=== PATIENT | female | born 1940 | race Caucasian/White ===

== ENCOUNTER 2020-06-21 10:44 | Inpatient (IN) | payer MEDICARE ==
[~2020-06-21] VITALS: Ht 167.6 cm; Wt 78.2 kg
[2020-06-21 10:46] VITALS: BP 137/71
[2020-06-21 11:17] LABS: BASO % 0.6 % (0.0-1.0); EOS % 0.1 % (1.0-4.0); HEMATOCRIT 32.6 % (37.0-47.0); LYMPH # 0.9 10*3/uL (1.3-4.4); LYMPH % 12.4 % (27.0-41.0); MEAN CELL VOLUME 95.9 fl (81.0-99.0); MEAN CORPUSCULAR HGB 30.3 pg (27.0-31.0); MEAN CORPUSCULAR HGB CONC 31.6 g/dl (33.0-37.0); MONO # 0.8 10*3/uL (0.1-1.0); MONO % 11.3 % (3.0-9.0); NEUT # 5.4 10*3/uL (2.3-7.9); NEUT % 75.5 % (47.0-73.0); PLATELET COUNT AUTOMATED 239 10*3/uL (130-400); RED CELL DISTRI WIDTH 13.3 % (0-14.5); WHITE BLOOD COUNT 7.1 10*3/uL (4.8-10.8)
[2020-06-21 11:29] LABS: ACT PARTIAL THROMBO TIME 28.2 SECONDS (20.0-32.1)
[2020-06-21 11:33] LABS: ALBUMIN 3.5 gm/dl (3.1-4.5); ALKALINE PHOSPHATASE 94 U/L (45-117); BUN 22 mg/dl (7-24); CHLORIDE 107 mmol/L (98-107); CKMB 1.4 ng/ml (0.5-3.6); CPK 139 U/L (26-192); LIPASE 67 U/L (73-393); POTASSIUM 3.9 mmol/L (3.5-5.1); SGOT/AST 15 IU/L (3-35); SGPT/ALT 20 U/L (12-78); SODIUM 139 mmol/L (136-145); TOTAL PROTEIN 7.8 gm/dL (6.4-8.2)
[2020-06-21 11:37] LABS: TROPONIN I < 0.015 ng/ml (<0.045)
[2020-06-21 12:59] LABS: BILIRUBIN NEGATIVE; BLOOD 1+ (NEGATIVE); CLARITY CLOUDY (CLEAR); COLOR YELLOW (YELLOW); GLUCOSE NEGATIVE; KETONE TRACE; LEUKO ESTERASE 3+ (NEGATIVE); NITRITE NEGATIVE (NEGATIVE)
[2020-06-21 13:13] LABS: RBC 16-20 rbc/hpf (0-2); WBC 31-40 wbc/hpf (0-5)
[2020-06-21 13:14] LABS: BACTERIA 2+; EPITHELIAL CELLS 16-20
[2020-06-21 13:30] VITALS: BP 130/80
[2020-06-21 15:00] VITALS: BP 138/74
[2020-06-21 16:00] VITALS: BP 138/74
[2020-06-21 20:00] VITALS: BP 137/57
[2020-06-22] VITALS: BP 109/60
[2020-06-22 06:00] VITALS: BP 121/61
[2020-06-22 06:56] LABS: BASO % 0.3 % (0.0-1.0); EOS % 0.6 % (1.0-4.0); HEMATOCRIT 32.1 % (37.0-47.0); LYMPH % 15.8 % (27.0-41.0); MEAN CELL VOLUME 97.6 fl (81.0-99.0); MEAN CORPUSCULAR HGB 30.4 pg (27.0-31.0); MEAN CORPUSCULAR HGB CONC 31.2 g/dl (33.0-37.0); MEAN PLATELET VOLUME 9.5 fl (9.6-12.3); MONO # 0.7 10*3/uL (0.1-1.0); MONO % 10.8 % (3.0-9.0); NEUT # 4.8 10*3/uL (2.3-7.9); NEUT % 72.2 % (47.0-73.0); PLATELET COUNT AUTOMATED 236 10*3/uL (130-400); RED BLOOD COUNT 3.29 10*6/uL (4.10-5.10); RED CELL DISTRI WIDTH 13.4 % (0-14.5); WHITE BLOOD COUNT 6.6 10*3/uL (4.8-10.8)
[2020-06-22 06:57] LABS: BUN 17 mg/dl (7-24); CHLORIDE 106 mmol/L (98-107); CHOLESTEROL 211 mg/dL (<200); CREATININE 1.04 mg/dL (0.55-1.02); HDL CHOLESTEROL 81 mg/dl (40-60); LDL CHOLESTEROL 119 mg/dL (9-159); SODIUM 137 mmol/L (136-145); TRIGLYCERIDES 55 mg/dl (<150); VLDL CHOLESTEROL 11 mg/dL (6-40)
[2020-06-22 07:51] LABS: VITAMIN D, 25-HYDROXY 20.6 ng/mL (30-100)
[2020-06-22 08:00] VITALS: BP 118/60
[2020-06-22 12:00] VITALS: BP 118/62
[2020-06-22 16:00] VITALS: BP 122/60
[2020-06-22 20:00] VITALS: BP 111/54
[2020-06-23] VITALS: BP 101/58
[2020-06-23 08:00] VITALS: BP 118/72
[2020-06-23 12:00] VITALS: BP 110/64
[2020-06-23 16:00] VITALS: BP 123/55
[2020-06-23 20:00] VITALS: BP 114/58
[2020-06-24] VITALS (7 sets, daily range): BP systolic 96–137; BP diastolic 54–77
[2020-06-25] VITALS: BP 121/58
[2020-06-25 06:19] LABS: BASO % 0.5 % (0.0-1.0); EOS # 0.1 10*3/uL (0.0-0.4); EOS % 0.9 % (1.0-4.0); HEMATOCRIT 31.2 % (37.0-47.0); LYMPH # 1.2 10*3/uL (1.3-4.4); LYMPH % 21.7 % (27.0-41.0); MEAN CELL VOLUME 94.8 fl (81.0-99.0); MEAN CORPUSCULAR HGB 30.4 pg (27.0-31.0); MEAN CORPUSCULAR HGB CONC 32.1 g/dl (33.0-37.0); MEAN PLATELET VOLUME 9.2 fl (9.6-12.3); MONO # 0.7 10*3/uL (0.1-1.0); MONO % 11.8 % (3.0-9.0); NEUT # 3.7 10*3/uL (2.3-7.9); NEUT % 64.9 % (47.0-73.0); PLATELET COUNT AUTOMATED 304 10*3/uL (130-400); RED BLOOD COUNT 3.29 10*6/uL (4.10-5.10); RED CELL DISTRI WIDTH 12.9 % (0-14.5); WHITE BLOOD COUNT 5.7 10*3/uL (4.8-10.8)
[2020-06-25 06:40] LABS: CREATININE 0.85 mg/dL (0.55-1.02)
[2020-06-25 08:00] VITALS: BP 129/72
[2020-06-25] MEDS ORDERED: RIVASTIGMINE1 EAC1 T (11:46)
[2020-06-25] MEDS ORDERED: VITAMIN D350 MCG PO (11:47)
[2020-06-25 12:00] VITALS: BP 131/76
== END 2020-06-25 14:32 | disposition other institution (70) | DRG 565 ==
LOC: ED 10:44 → EDHOLD 14:10 → 4E 14:10
PROVIDERS: Physician Assistant; ADMIT Internal Medicine; ATTEND Internal Medicine
DX: M25.462 Effusion, left knee (principal); N30.01 Acute cystitis with hematuria; R26.2 Difficulty in walking, not elsewhere classified; E83.41 Hypermagnesemia; F03.90 Unspecified dementia, unspecified severity, without behavioral disturbance, psychotic disturbance, mood disturbance, and anxiety; F39 Unspecified mood [affective] disorder; D50.9 Iron deficiency anemia, unspecified; Z20.828 Contact with and (suspected) exposure to other viral communicable diseases; Z79.899 Other long term (current) drug therapy